=== PATIENT | female | born 1940 | race Caucasian/White ===

== ENCOUNTER → 2020-01-28 | Outpatient (CLI) | payer MEDICARE ==
--- NOTE | 2020-01-28 13:18 | CT ---
EXAMINATION TYPE: CT chest wo con DATE OF EXAM: 01/28/2020 COMPARISON: NONE HISTORY: Lung nodule; History of breast cancer. CT DLP: 257 mGycm. Automated Exposure Control for Dose Reduction was Utilized. TECHNIQUE: CT scan of the thorax is performed without IV contrast. FINDINGS: LUNGS: Moderate underlying emphysematous change greatest in the upper lungs. Mild to moderate right g reater than left biapical pleural/parenchymal scarring extending anteriorly in the right lung. Pleura l-based nodular scarring axial image 10 is thought present. This is broad-based on sagittal image 33. No suspicious pulmonary nodules or masses otherwise. No pleural effusion or pneumothorax. MEDIASTINUM: Lack of IV contrast is noted to limit evaluation for mediastinal and especially hilar a denopathy. There are prominent but subcentimeter lymph nodes throughout the mediastinum . No signif icant pericardial effusion is seen. Heart size upper limits of normal. Calcification at level of mitr al and aortic valve. At least moderate three-vessel coronary artery calcification. Enlarged right and left pulmonary arteries, CT findings consistent with underlying pulmonary hypertension. Other: Left breast is surgically absent. Overlying external accounts receivable accountant. Left axillary surgical clips no rakel. Calcifications throughout the spleen consistent with product of old granulomatous disease. Exagg erated cervical kyphosis with moderate multilevel spurring in the spine IMPRESSION: Moderate emphysematous change without suspicious pulmonary nodule or mass. No suspicious acute pulmonary process.
== END | disposition home or self-care (01) ==
LOC: RADCTMAIN 11:49
PROVIDERS: ATTEND Family Medicine
DX: J43.9 Emphysema, unspecified (principal)
CPT/HCPCS: 71250

== ENCOUNTER → 2020-03-17 | Outpatient (CLI) | payer MEDICARE ==
--- NOTE | 2020-03-17 14:31 | US ---
EXAMINATION TYPE: US transvaginal DATE OF EXAM: 03/17/2020 COMPARISON: NONE CLINICAL HISTORY: R10.2 Female pelvic pain. PAIN TECHNIQUE: Transvaginal (TV). EXAM MEASUREMENTS: Uterus: 5.5 X 2.3 X 3.9 cm Endometrial Stripe: .5 cm 1. Uterus: Anteverted wnl 2. Endometrium: wnl 3. Right Ovary: Obscured by overlying bowel gas 4. Left Ovary: Obscured by overlying bowel gas 5. Bilateral Adnexa: wnl 6. Posterior cul-de-sac: wnl IMPRESSION: 1. Normal pelvic ultrasound
== END | disposition home or self-care (01) ==
LOC: RADUSWWP 13:58
PROVIDERS: ATTEND Family Medicine
DX: R10.2 Pelvic and perineal pain (principal)
CPT/HCPCS: 76830

== ENCOUNTER → 2020-06-14 | Outpatient (CLI) | payer MEDICARE ==
--- NOTE | 2020-06-14 15:58 | US ---
EXAMINATION TYPE: US kidneys/renal and bladder DATE OF EXAM: 06/14/2020 COMPARISON: CT Chest CLINICAL HISTORY: N18.9 Chronic kidney disease. CKD EXAM MEASUREMENTS: Right Kidney: 9.0 x 3.9 x 4.3 cm Left Kidney: 8.2 x 4.0 x 3.8 cm Right Kidney: Appeared wnl Left Kidney: Small in size, otherwise appeared wnl Bladder: Appeared wnl Bilateral Jets seen: Only right jet visualized Granulomas scattered throughout spleen IMPRESSION: Slight asymmetry in size of the kidneys with the left being slightly smaller than the right but no ev idence of hydronephrosis or nephrolithiasis. Incidental note of splenic granuloma.
== END | disposition home or self-care (01) ==
LOC: RADUSWWP 15:30
PROVIDERS: ATTEND Family Medicine
DX: N18.9 Chronic kidney disease, unspecified (principal); N28.89 Other specified disorders of kidney and ureter
CPT/HCPCS: 76770